=== PATIENT | male | born 1945 | race Caucasian/White ===

== ENCOUNTER 2020-05-21 14:46 | Emergency (ER) | payer MEDICARE, OTHER, SELFPAY ==
--- NOTE | ~2020-05-21 | XR_ITS ---
XR humerus RT DATE: 05/21/2020 16:00 INDICATION: Patient felt a pop in the arm, swelling TECHNIQUE: AP and lateral views COMPARISON: None FINDINGS: There is old healed fracture deformity of the midshaft of the right clavicle. There is evidence of rotator cuff atrophy. There is degenerative spurring at the acromioclavicular xavier int. There is osteophyte is at the right glenohumeral joint. Prominent ossicles are noted adjacent to the elbow joint. Osteoarthritis is noted at the right elbow joint. No recent fracture or dislocation is evident. No periosteal reaction or bone destruction. 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
[2020-05-21 15:06] VITALS: BP 128/63; PULSE 78; RESP 18; TEMP 37.2; O2SAT 98
--- NOTE | 2020-05-21 15:26 | ED.GENADULT ---
HPI - General Adult General Chief complaint: Extremity Problem,Nontraumatic Stated complaint: knot on right arm Time Seen by Provider: 05/21/20 15:43 Source: patient Mode of arrival: ambulatory Limitations: no limitations History of Present Illness HPI narrative: 34-year-old male patient presents to the the medical center with complaints of right upper arm pain. Patient states he was at work today and was pushing a small box into a truck and states he felt a pop down by his elbow that radiated up to the mid upper arm. Patient states now he has noticed some swelling to the bicep area and knots . Patient states there is a little bit of pain to the area. Related Data Home Medications Medication Instructions Recorded Confirmed allopurinol 100 mg PO DAILY 05/21/20 05/21/20 aspirin [Aspir-81] 81 mg PO DAILY 05/21/20 05/21/20 atorvastatin 40 mg PO DAILY 05/21/20 05/21/20 carvedilol 05/21/20 citalopram 20 mg PO DAILY 05/21/20 05/21/20 clopidogrel 75 mg PO DAILY 05/21/20 05/21/20 famotidine 20 mg PO BID 05/21/20 05/21/20 hydrochlorothiazide 12.5 mg PO DAILY 05/21/20 05/21/20 lisinopril 10 mg PO DAILY 05/21/20 05/21/20 metformin 1,000 mg PO BID 05/21/20 05/21/20 Allergies Allergy/AdvReac Type Severity Reaction Status Date / Time No Known Allergies Allergy Verified 05/21/20 15:06 Review of Systems Review of Systems: Narrative: CONSTITUTIONAL: Denies fever, chills, or sweats. EYES: Denies visual changes, redness, or discharge. ENT: Denies rhinorrhea, congestion, sore throat, or otalgia. CARDIOVASCULAR: Denies chest pain, palpitations, or edema. RESPIRATORY: Denies cough or dyspnea. GASTROINTESTINAL: Denies abdominal pain, nausea, vomiting, or diarrhea. GENITOURINARY: Denies dysuria or hematuria. SKIN: Denies rash or itching. MUSCULOSKELETAL: Denies back pain, joint pain, or myalgia. Positive right arm pain NEUROLOGIC: Denies headache, numbness, or weakness. PSYCHIATRIC: Denies anxiety or depression. PMFSH Comments At the time of my signature I agree with nursing past medical history, surgical, social, and family history. There is no relevant family history pertinent to the presenting complaint. Exam Narrative: Exam Narrative: GENERAL: Well-appearing, well-nourished, and in no acute distress. HEAD: Normocephalic, atraumatic. EYES: PERRLA and EOMI. ENT: Nares clear, no rhinorrhea or epistaxis. Mucous membranes moist. NECK: Supple. No lymphadenopathy CHEST: Clear to auscultation. No respiratory distress. HEART: Regular rate and rhythm. No murmur heard. Normal peripheral pulses. ABDOMEN: Soft, nontender, nondistended, normal active bowel sounds. EXTREMITIES: Patient has some swelling in a hardened area right around the right bicep on the anterior side. There is an hardened area that slightly tender. Patient has overall good range of motion but unable to fully extend the elbow on the right side as compared to the left. Patient is able to raise his arm above his head without difficulty. SKIN: Warm, dry, no rash. NEURO: No focal deficits. Alert and oriented x3. Course Reevaluation(s) Reevaluation #1: Reevaluated patient after his x-ray had resulted. Discussed with him that the x-ray shows possibly some rotator cuff atrophy which is concerning for a possible bicep tear. Discussed with him that we can have him follow-up with orthopedic surgeon for further evaluation and treatment. Discussed with him that I did call the orthopedic surgeon and he needs to call his office tomorrow and schedule appointment. Discussed with patient he can take Tylenol and ibuprofen as needed for the pain we will also fit him for a sling to wear for comfort and I am going to take him off work until he sees the orthopedic surgeon. Discussed with him that the orthopedic surgeon can release him back to work either with full duty or restrictions. Patient is aware the plan of care at this time denies any other questions or concerns. Consultations Consultation #1:
== END 2020-05-21 16:44 | disposition home or self-care (01) ==
PROVIDERS: Emergency Provider Nurse Practitioner Family; PCP Internal Medicine
DX: S46.211A Strain of muscle, fascia and tendon of other parts of biceps, right arm, initial encounter (principal); Z79.82 Long term (current) use of aspirin; Z79.84 Long term (current) use of oral hypoglycemic drugs; X50.9XXA Other and unspecified overexertion or strenuous movements or postures, initial encounter
CPT/HCPCS: 73060; 99203; A4565; G0463

== ENCOUNTER 2021-07-17 15:06 | Emergency (ER) | payer MEDICARE, OTHER, SELFPAY ==
--- NOTE | ~2021-07-17 | XR_ITS ---
EXAMINATION: XR foot LT min 3V DATE: 07/17/2021 15:33 INDICATION: Left heel and lateral foot pain. TECHNIQUE: 4 views of left foot were obtained. COMPARISON: None. FINDINGS: Bone alignment is normal. No fracture. There is moderate osteoarthritis of first metatarsop halangeal joint and mild osteoarthritis of some of the interphalangeal joints and midfoot joints. The re are dystrophic calcifications around first metatarsophalangeal joint. There is an enthesophyte at posterior aspect of calcaneal tuberosity. IMPRESSION: 1. Polyarticular osteoarthritis. Reviewed, dictated and finalized at location B.
[2021-07-17 15:16] VITALS: BP 128/64; PULSE 101; RESP 20; TEMP 36.8; O2SAT 96
--- NOTE | 2021-07-17 15:35 | ED.GENADULT ---
HPI - General Adult General Chief complaint: Extremity Injury, Lower Stated complaint: left foot pain Source: patient Mode of arrival: ambulatory Limitations: no limitations History of Present Illness HPI narrative: Patient is a 76-year-old male who presents to the [facility] via POV for evaluation of left heel pain that has been present for 1 week. Additionally, patient reports his pain to be intermittent and sharp in nature. Current pain level is 8 out of 10 on a pain scale. Pain is resolved with sitting and worsens with weightbearing. Related Data Home Medications Medication Instructions Recorded Confirmed allopurinol 100 mg PO DAILY 05/21/20 05/21/20 aspirin [Aspir-81] 81 mg PO DAILY 05/21/20 05/21/20 atorvastatin 40 mg PO DAILY 05/21/20 05/21/20 carvedilol 05/21/20 citalopram 20 mg PO DAILY 05/21/20 05/21/20 clopidogrel 75 mg PO DAILY 05/21/20 05/21/20 famotidine 20 mg PO BID 05/21/20 05/21/20 hydrochlorothiazide 12.5 mg PO DAILY 05/21/20 05/21/20 lisinopril 10 mg PO DAILY 05/21/20 05/21/20 metformin 1,000 mg PO BID 05/21/20 05/21/20 Allergies Allergy/AdvReac Type Severity Reaction Status Date / Time No Known Allergies Allergy Verified 05/21/20 15:06 Review of Systems Review of Systems: Denies fever, chills, sweats, change in appetite, poor p.o. intake, malaise, calf tenderness, skin color changes, rash, warmth, swelling, numbness, tingling, loss of sensation, deformity, decreased range of motion, weakness, difficulty with ambulation/coordination, nausea, vomiting, lymphadenopathy, shortness of breath, chest pain, heart palpitations, and heart murmur. [facility] Past Medical History Medical History (Updated 07/17/21 @ 15:49 by VICKY Salinas, ) Depression Diabetes GERD (gastroesophageal reflux disease) Gout Hyperlipidemia Hypertension Comments I have reviewed and agree with the patient's past medical, surgical, social, and family hx as documented by the RN. There is no relevant family history pertinent to the presenting complaint. Exam Narrative: GENERAL: Well-appearing, well-nourished, and in no acute distress. HEAD: Normocephalic, atraumatic. NECK: Supple. No Lymphadenopathy or nuchal rigidity appreciated. CHEST: Bilateral lung finch are clear to auscultation. No respiratory distress. No evidence of cough or pleuritic cp upon examination. HEART: Tachycardia with a rate of 101. Regular rhythm. No murmur, gallop, or rub heard. EXTREMITIES: Mild pain elicited with palpation noted to lateral aspect of left foot and left calcaneus.. No evidence of injury, decreased ROM, swelling, cyanosis, hematoma, laceration, abrasion, deformity, rash, or puncture. No evidence of pain with active/passive ROM. No evidence of dislocation, ligament laxity, effusion, or pain at rest. Pulses palpable at 2+, strength 5/5, and cap refill < 3 seconds in affected extremity. DTRs normal. Gait normal. SKIN: Warm, dry, no rash. NEURO: No focal deficits. Alert and oriented x3. SPECIAL OBSERVATIONS: Smiling. Laughing. Course Vital Signs Vital signs: Vital Signs Temperature 98.2 F 07/17/21 15:16 Pulse Rate 101 H 07/17/21 15:16 Respiratory Rate 07/17/21 15:16 Blood Pressure 128/64 07/17/21 15:16 Pulse Oximetry 96 07/17/21 15:16 Temperature 98.2 F 07/17/21 15:16 Pulse Rate 101 H 07/17/21 15:16 Respiratory Rate 07/17/21 15:16 Blood Pressure 128/64 07/17/21 15:16 Pulse Oximetry 96 07/17/21 15:16 Medical Decision Making Differential Diagnosis Differential Diagnosis: Sprain, strain, cellulitis, open fracture, closed fracture, gout Medical Records Medical records reviewed: Yes I reviewed the external patient's medical records. Vital Signs Vital Signs: Vital Signs Temperature 98.2 F 07/17/21 15:16 Pulse Rate 101 H 07/17/21 15:16 Respiratory Rate 07/17/21 15:16 Blood Pressure 128/64 07/17/21 15:16 Pulse Oximetry 96 07/17/21 15:16 Temperature 98
== END 2021-07-17 16:04 | disposition home or self-care (01) ==
PROVIDERS: Emergency Provider Nurse Practitioner Family
DX: M19.072 Primary osteoarthritis, left ankle and foot (principal); E11.9 Type 2 diabetes mellitus without complications; K21.9 Gastro-esophageal reflux disease without esophagitis; M10.9 Gout, unspecified; E78.5 Hyperlipidemia, unspecified; I10 Essential (primary) hypertension; F32.9 Major depressive disorder, single episode, unspecified; Z79.82 Long term (current) use of aspirin
CPT/HCPCS: 73630; 99213; G0463

== ENCOUNTER 2021-12-09 10:07 | Emergency (ER) | payer MEDICARE, OTHER, SELFPAY ==
--- NOTE | 2021-12-09 10:10 | ED.URI ---
HPI - URI/Sore Throat General Chief Complaint: Upper Respiratory Infection Stated Complaint: COLD SX Time Seen by Provider: 12/09/21 10:19 Source: patient, family, RN notes reviewed and old records reviewed Mode of arrival: ambulatory Limitations: no limitations History of Present Illness HPI Narrative: 76-year-old male presents to the [facility] with red watery eyes, congestion and cough since Wednesday. Has been taking Coricidin HBP. Has had COVID-vaccine but not a flu vaccine. Denies fevers, chest pain, abdominal pain. No nausea vomiting or diarrhea MD elicited complaint: cough and nasal congestion Related Data Home Medications Medication Instructions Recorded Confirmed allopurinol 100 mg PO DAILY 05/21/20 05/21/20 aspirin [Aspir-81] 81 mg PO DAILY 05/21/20 05/21/20 atorvastatin 40 mg PO DAILY 05/21/20 05/21/20 carvedilol 05/21/20 citalopram 20 mg PO DAILY 05/21/20 05/21/20 clopidogrel 75 mg PO DAILY 05/21/20 05/21/20 famotidine 20 mg PO BID 05/21/20 05/21/20 hydrochlorothiazide 12.5 mg PO DAILY 05/21/20 05/21/20 lisinopril 10 mg PO DAILY 05/21/20 05/21/20 metformin 1,000 mg PO BID 05/21/20 05/21/20 cholecalciferol (vitamin D3) 125 mcg PO DAILY 12/09/21 12/09/21 Allergies Allergy/AdvReac Type Severity Reaction Status Date / Time No Known Allergies Allergy Verified 05/21/20 15:06 Review of Systems Review of Systems: All systems reviewed & are unremarkable except as noted in HPI and below Constitutional: Constitutional: Reports no additional constitutional complaints, Denies chills, Denies fever(s) and Denies headache(s) Eyes: Eyes: Reports as per HPI Comments: Red eyes ENT: Reports as per HPI, Denies vertigo, Denies dizziness, Denies headache(s), Denies nasal congestion and Denies sore throat Cardiovascular: Cardiovascular: Reports no additional cardiovascular complaints, Denies chest pain, Denies syncope, Denies rapid heart rate and Denies dyspnea Respiratory: Respiratory: Reports as per HPI, Reports cough, Denies dyspnea and Denies wheezing Gastrointestinal: Gastrointestinal: Reports no additional gastrointestinal complaints, Denies abdominal pain, Denies diarrhea, Denies nausea and Denies vomiting Musculoskeletal: Musculoskeletal: Reports as per HPI, Reports myalgias and Denies numbness Integumentary/Breasts: Skin/Breast: Reports system reviewed and no additional complaints, except as docu Neurologic: Reports system reviewed and no additional complaints, except as documented, Denies vertigo, Denies dizziness, Denies syncope, Denies headache(s), Denies focal weakness and Denies numbness Psychiatric: Psychiatric: Reports no additional psychiatric complaints Allergic/Immunologic: Allergic/Immunologic: Reports no additional allergic/immunologic complaints and Denies wheezing PMFSH Past Medical History Medical History (Updated 12/09/21 @ 10:47 by Elin Rios) Depression Diabetes GERD (gastroesophageal reflux disease) Gout Hyperlipidemia Hypertension Comments At the time of my signature, I reviewed and agree with the nursing past medical, surgical, social, and family history. There is no relevant family history pertinent to the patient complaint. Exam Const: General: cooperative, no acute distress, well developed, alert and ill appearing acutely (mild) Nutritional Appearance: well nourished Orientation/consciousness: patient oriented x3 Limitations: no limitations HENMT: Head: normal to inspection Ears: external ears normal, TM's normal bilaterally and EAC's normal Eyes: Conjunctivae: conjunctivae normal Pupils: Equal, round and reactive pupils present Other: Red eyes, constantly watering Neck: Neck: normal visual inspection, no lymphadenopathy and no meningeal signs Chest: Chest palpation & inspection: normal inspection of the chest Resp: Effort & Inspection: normal respiratory effort and no use of accessory muscles Auscultation: clear to auscultation bilaterally, no crackles, no rales
[2021-12-09 10:22] VITALS: BP 142/50; PULSE 74; RESP 16; TEMP 37; O2SAT 98
[2021-12-09 10:33] VITALS: BP 142/50; PULSE 74; RESP 16; TEMP 37; O2SAT 98
[2021-12-10 21:18] LABS: SARS-CoV-2 RNA PCR Negative
== END 2021-12-09 10:50 | disposition home or self-care (01) ==
PROVIDERS: Emergency Provider Nurse Practitioner; PCP Internal Medicine
DX: B34.9 Viral infection, unspecified (principal); Z20.822 Contact with and (suspected) exposure to COVID-19; K21.9 Gastro-esophageal reflux disease without esophagitis; M10.9 Gout, unspecified; E78.5 Hyperlipidemia, unspecified; I10 Essential (primary) hypertension; F32.9 Major depressive disorder, single episode, unspecified
CPT/HCPCS: 87804; 99213; C9803; G0463; U0003; U0005

== ENCOUNTER 2023-04-03 12:37 | Emergency (ER) | payer MEDICARE, SELFPAY ==
--- NOTE | ~2023-04-03 | XR_ITS ---
EXAMINATION: XR abdomen/kub 1V DATE: 04/03/2023 14:01 INDICATION: Right flank pain. Microhematuria. TECHNIQUE: A supine view of the abdomen on 2 radiographs was obtained. COMPARISON: None. FINDINGS: There are no dilated loops of bowel. There is a total right hip arthroplasty. There is a 4 mm calcification overlying right kidney. IMPRESSION: 1. 4 mm calcification overlying right kidney that may be a stone. Reviewed, dictated and finalized at location A.
[2023-04-03 12:58] VITALS: BP 140/62; PULSE 73; RESP 16; TEMP 37.1; O2SAT 98
--- NOTE | 2023-04-03 13:37 | ED.NAVMDI ---
HPI - Nausea/Vomiting/Diarrhea General Chief complaint: Nausea/Vomiting/Diarrhea Stated complaint: Pain in side, n/v Time Seen by Provider: 04/03/23 13:39 Source: patient and RN notes reviewed Mode of arrival: ambulatory Limitations: no limitations History of Present Illness HPI Narrative: 77-year-old male presents with concern for right flank pain. He reports pain for about 3 days, reports he started vomiting yesterday. Reports he has been unable to keep anything down. He reports pain is there at rest, worsens when he twists. He denies any abdominal pain, fever, chills, sweats. He denies diarrhea. Denies dysuria, frequency, urgency, hematuria. Reports normal bowel movements MD elicited complaint: nausea, vomiting and diarrhea Related Data Home Medications Medication Instructions Recorded Confirmed allopurinol 100 mg tablet 100 mg PO DAILY 05/21/20 04/03/23 aspirin 81 mg tablet,delayed 81 mg PO DAILY 05/21/20 04/03/23 release (Aspir-) atorvastatin 40 mg tablet 40 mg PO DAILY 05/21/20 04/03/23 carvedilol 6.25 mg tablet 6.25 mg PO DAILY 05/21/20 04/03/23 citalopram 20 mg tablet 20 mg PO DAILY 05/21/20 04/03/23 clopidogrel 75 mg tablet 75 mg PO DAILY 05/21/20 04/03/23 famotidine 20 mg tablet 20 mg PO BID 05/21/20 04/03/23 hydrochlorothiazide 12.5 mg capsule 12.5 mg PO DAILY 05/21/20 04/03/23 lisinopril 10 mg tablet 10 mg PO DAILY 05/21/20 04/03/23 metformin 1,000 mg tablet 1,000 mg PO BID 05/21/20 04/03/23 cholecalciferol (vitamin D3) 125 125 mcg PO DAILY 12/09/21 04/03/23 mcg (5,000 unit) tablet dapagliflozin 10 mg tablet 10 mg PO DAILY 04/03/23 04/03/23 (Farxiga) pioglitazone 15 mg tablet 15 mg PO DAILY 04/03/23 04/03/23 Allergies Allergy/AdvReac Type Severity Reaction Status Date / Time No Known Allergies Allergy Verified 04/03/23 13:25 Review of Systems Review of Systems: CONSTITUTIONAL: Denies malaise, chills, sweats, or fever. ENT: Denies rhinorrhea, congestion, sinus pain, otalgia or sore throat. CARDIOVASCULAR: Denies chest pain, palpitations, or edema. RESPIRATORY: Denies cough or dyspnea. GASTROINTESTINAL: Denies abdominal pain, diarrhea, bloody, or mucous stools. Reports nausea and vomiting GENITOURINARY: Denies dysuria or hematuria. Reports right flank pain MUSCULOSKELETAL: Denies myalgia. NEUROLOGIC: Denies headache. All systems reviewed & are unremarkable except as noted in HPI and below PMFSH Past Medical History Medical History (Updated 04/03/23 @ 14:13 by Elin aVsquez NP) Depression Diabetes GERD (gastroesophageal reflux disease) Gout Hyperlipidemia Hypertension Comments At time of signature, agree with nursing past medical, surgical, social and family history. There is no relevant family history pertinent to the presenting complaint Exam Narrative: GENERAL: Well-appearing, well-nourished, and in no acute distress. HEAD: Normocephalic, atraumatic. EYES: PERRLA, conjunctivae clear, and EOMI. ENT: Nares clear, turbinates pink, no rhinorrhea or epistaxis. Mucous membranes moist. Oropharynx without edema, erythema, or lesions. Tonsils not enlarged and without exudate. NECK: Supple. No lymphadenopathy CHEST: Speaks in full sentences. No respiratory distress. HEART: Regular rate and rhythm. ABDOMEN: Soft, obese, nondistended, nontender. No guarding, rebound tenderness, or rigidity. No pulsatile masses. Bowel sounds present in all four quadrants. No Supra public tenderness or distension. SKIN: Warm, dry, no rash. NEURO: Alert and oriented x3. PSYCH: Normal mood and affect Course Course Emergency Course: Patient is aware of diagnosis, understands and agrees to treatment plan. Anticipatory guidance given. Patient agrees to follow-up as directed and is aware of reasons to seek care at the emergency department. Portions of this record may have been created with voice recognition software Level of Care: Express Care Visit Vital Signs Vital signs: Vital Signs
== END 2023-04-03 14:32 | disposition home or self-care (01) ==
PROVIDERS: Emergency Provider Nurse Practitioner
DX: N20.0 Calculus of kidney (principal); E11.9 Type 2 diabetes mellitus without complications; E78.5 Hyperlipidemia, unspecified; I10 Essential (primary) hypertension; Z79.82 Long term (current) use of aspirin
CPT/HCPCS: 74018; 81003; 99213; G0463

== ENCOUNTER 2023-09-17 11:40 | Emergency (ER) | payer MEDICARE, SELFPAY ==
[2023-09-17] VITALS (14 sets, daily range): BP systolic 144–182; BP diastolic 65–89; PULSE 60–77; RESP 12–20; TEMP 36.1; O2SAT 95–100
--- NOTE | ~2023-09-17 | CT_ITS ---
EXAMINATION: CT abdomen pelvis wo con DATE: 09/17/2023 16:02 INDICATION: Right flank pain and hematuria TECHNIQUE: Computed tomography (CT) of the abdomen and pelvis was performed without intravenous contr ast. Automated exposure control and iterative reconstruction technique were employed. The dose-length product was 1121.54 mGy-cm. COMPARISON: None FINDINGS: Mild clinical bronchiectasis at the bilateral lower lobes. Heart size is normal. Atherosclerotic lissa nary artery calcification. Lipomatous hypertrophy of the atrial septum. No pericardial or pleural eff usion. Liver, gallbladder, spleen and right adrenal gland are normal. Small amount of dystrophic calc ific lesion along the left adrenal gland likely sequela of chronic hemorrhage or infection. Moderate fatty atrophy of the pancreas. Kidneys and ureters are normal with no urolithiasis, hydroureteronephr osis or perinephric/ureteral stranding. Bowels including the appendix are normal. Bladder is normal. Prostatomegaly measuring 4.1 x 3.0 cm. Small bilateral fat-containing inguinal hernias. No free intra peritoneal gas or fluid. No pathologically enlarged abdominal or pelvic lymphadenopathy. Mild lumbar levocurvature with moderate to severe spondylosis. Right total hip arthroplasty. IMPRESSION: 1. No urolithiasis or acute intra-abdominal/pelvic process. 2. Small bilateral fat-containing inguinal hernias. Reviewed, dictated and finalized at location A.
[2023-09-17 15:12] LABS: Basophils Percent Auto 0.4 % (0.2-1.2); Eosinophils Percent Auto 0.4 % (0-4.4); Hematocrit 48.1 % (42.0-52.0); Immature Granulocyte Absolute 0.04 K/mm3 (0.00-0.031); Immature Granulocyte Percent A 0.5 % (0-0.5); Lymphocytes Absolute Auto 1.31 K/mm3 (0.9-3.2); Lymphocytes Percent Auto 16.1 % (18.3-44.2); Mean Corpuscular HGB Conc 33.3 g/dl (32-36); Mean Corpuscular Hemoglobin 29.8 pg (26-34); Mean Corpuscular Volume 89.6 fl (80-100); Mean Platelet Volume 9.8 fl (7.4-10.4); Monocytes Percent Auto 12.7 % (2.6-8.5); Neutrophils Absolute Auto 5.7 K/mm3 (1.3-6.7); Neutrophils Percent Auto 69.9 % (45.5-73.1); Platelet Count Result 239 k/mm3 (150-375); Red Blood Count 5.37 M/mm3 (4.6-6.20); White Blood Count 8.2 K/mm3 (4.5-10.0)
[2023-09-17 15:18] LABS: Appearance Urine Clear (Clear); Bacteria Urine None Seen /hpf; Bilirubin Urine Negative (Negative); Blood Urine 2+ (Negative); Color Urine Yellow (Yellow); Glucose Urine UA 3+ mg/dL (Negative); Ketones Urine Trace mg/dL (Negative); Leukocyte Esterase Ur Negative LEU/UL (Negative); Nitrate Urine Negative (Negative); Non Pathogenic Casts 0-2; Protein Urine Negative (Negative); Specific Grav Ur 1.032 (1.001-1.035); Squamous Epithelial Cell Urine None seen /hpf (Few); WBC Urine 0-5 /hpf; pH Urine 5.5 (5.0-9.0)
[2023-09-17 15:19] LABS: Add Urine Microscopic? YES
[2023-09-17 15:24] LABS: Lactic Acid Reflex 3.2 mmol/L (0.7-2.0)
[2023-09-17 15:31] LABS: Alanine Aminotransferase 18 U/L (6-50); Albumin Level 4.6 g/dL (3.5-5.1); Alkaline Phosphatase 65 U/L (38-126); Anion Gap 14 mmol/L (8-16); Aspartate Amino Transferase 26 U/L (17-59); Bilirubin,Total 0.8 mg/dL (0.2-1.3); Blood Urea Nitrogen 21 mg/dL (9-20); Calcium 9.1 mg/dL (8.4-10.2); Carbon Dioxide 21 mmol/L (22-30); Chloride 99 mmol/L (98-107); Estimated CRCL calculation 65 ml/min; Estimated Glomerular Filt Rate > 60; Glucose 108 mg/dL (65-110); Lipase 114 U/L (23-300); Potassium 3.6 mmol/L (3.4-5.0); Sodium 134 mmol/L (137-145)
[2023-09-17 15:32] LABS: Partial Thromboplastin Time 27.3 SECONDS (22.3-36.8); Prothrombin Time 13.3 Seconds (11.1-14.7)
--- NOTE | 2023-09-17 15:45 | ED.ABDPAIN ---
HPI - Abdominal Pain General Chief Complaint: Abdominal Pain Stated Complaint: right flank pain x6 months Time Seen by Provider: 09/17/23 14:32 History of Present Illness HPI narrative: 78-year-old male present to the emergency department for evaluation of right flank pain. Patient states he has had intermittent right flank pain over the course of the last 6 months. Patient does have prior history of hematuria, previous imaging showing kidney stone but patient has never had follow-up with urology. Patient does have follow-up scheduled with urology in [place] next week. Related Data Home Medications Medication Instructions Recorded Confirmed allopurinol 100 mg tablet 100 mg PO DAILY 05/21/20 04/03/23 aspirin 81 mg tablet,delayed 81 mg PO DAILY 05/21/20 04/03/23 release (Aspir-) atorvastatin 40 mg tablet 40 mg PO DAILY 05/21/20 04/03/23 carvedilol 6.25 mg tablet 6.25 mg PO DAILY 05/21/20 04/03/23 citalopram 20 mg tablet 20 mg PO DAILY 05/21/20 04/03/23 clopidogrel 75 mg tablet 75 mg PO DAILY 05/21/20 04/03/23 famotidine 20 mg tablet 20 mg PO BID 05/21/20 04/03/23 hydrochlorothiazide 12.5 mg capsule 12.5 mg PO DAILY 05/21/20 04/03/23 lisinopril 10 mg tablet 10 mg PO DAILY 05/21/20 04/03/23 metformin 1,000 mg tablet 1,000 mg PO BID 05/21/20 04/03/23 cholecalciferol (vitamin D3) 125 125 mcg PO DAILY 12/09/21 04/03/23 mcg (5,000 unit) tablet dapagliflozin propanediol 10 mg 10 mg PO DAILY 04/03/23 04/03/23 tablet (Farxiga) pioglitazone 15 mg tablet 15 mg PO DAILY 04/03/23 04/03/23 Allergies Allergy/AdvReac Type Severity Reaction Status Date / Time No Known Allergies Allergy Verified 09/17/23 11:41 Review of Systems Review of Systems: All systems reviewed & are unremarkable except as noted in HPI and below PMFSH Past Medical History Medical History (Updated 09/17/23 @ 17:53 by Henrik Matos MD) Depression Diabetes GERD (gastroesophageal reflux disease) Gout Hyperlipidemia Hypertension Exam Narrative: APPEARANCE: Well appearing, no pain, no distress, well-nourished. HEAD: normocephalic, atraumatic. EYES: PERRLA/EOMI, conjunctivae clear. NOSE: Normal no drainage NECK: Supple. No adenopathy, no masses. RESPIRATORY: Airway patent, respirations nonlabored. Clear to auscultation bilaterally, no rales, rhonchi, wheezing. CARDIOVASCULAR: Regular rate and rhythm without murmurs rubs or gallops. ABDOMINAL: Left CVA tenderness to palpation, no right CVA tenderness to palpation MUSCULOSKELETAL: Moves all extremities. Strength/ROM intact, No edema, No calf tenderness. NEURO: Alert. Cranial nerves II through XII intact. Grossly intact SKIN: Warm, dry. Normal Color Course Course Emergency Course: 78-year-old male present to the emergency department for ration of flank pain. Patient is afebrile with no leukocytosis and a stable hemoglobin. Patient's CMP shows no significant abnormalities. Patient's lactic acid is elevated 3.2. Patient was treated with IV fluids. Patient's UA does show hematuria without underlying infection. CT abdomen pelvis without contrast was ordered to further evaluate the hematuria and to evaluate for a kidney stone. Patient was treated with IV fluids. Patient's repeat lactic acid was improved. CT scan showed no evidence of ureteral calculi. Patient and family are updated the results of the work-up. Patient will be provided medication for pain control for home although he is currently pain-free in the ED. Patient does have follow-up scheduled with urology. All question concerns were addressed and they are comfortable with the plan for discharge and close follow-up. Vital Signs Vital signs: Vital Signs Temperature 97.0 F L 09/17/23 11:50 Pulse Rate 75 09/17/23 11:50 Respiratory Rate 20 09/17/23 11:50 Blood Pressure 161/72 H 09/17/23 11:50 Pulse Oximetry 98 09/17/23 11:50 Temperature 97.0 F L 09/17/23 11:50 Pulse Rate 60 09/17/23 17:45 Respiratory Rate
[2023-09-17] MEDS: SODIUM CHLORIDE 0.9% IV 1,000 ML 999 ML IV CONT ×2 (16:08→16:55)
[2023-09-17 17:48] LABS: Lactic Acid Reflex 1.2 mmol/L (0.7-2.0)
[2023-09-17 18:08] LABS: Reflex Lactic Acid Yes or No Add Lactic
== END 2023-09-17 18:10 | disposition home or self-care (01) ==
PROVIDERS: Emergency Provider Emergency Medicine
DX: R10.31 Right lower quadrant pain (principal); R31.9 Hematuria, unspecified; E11.9 Type 2 diabetes mellitus without complications; I10 Essential (primary) hypertension; E78.5 Hyperlipidemia, unspecified; K21.9 Gastro-esophageal reflux disease without esophagitis; M10.9 Gout, unspecified; F32.A Depression, unspecified; Z79.82 Long term (current) use of aspirin; Z79.84 Long term (current) use of oral hypoglycemic drugs; Z79.891 Long term (current) use of opiate analgesic
CPT/HCPCS: 36415; 74176; 80053; 81001; 83605; 83690; 85025; 85610; 85730; 96360; 96361; 99284; J7030

== ENCOUNTER 2024-07-04 14:39 | Emergency (ER) | payer MEDICARE, SELFPAY ==
--- NOTE | ~2024-07-04 | CT_ITS ---
EXAMINATION: CT brain wo con DATE: 07/04/2024 16:03 INDICATION: Head injury . TECHNIQUE: Computed tomography (CT) of the head was performed without intravenous contrast. The mA wa s adjusted according to patient size. Iterative reconstruction technique was employed. The dose-lengt h product was 681.00 mGy-cm. COMPARISON: None. FINDINGS: No acute intracranial hemorrhage or extra-axial fluid collection. No hydrocephalus, mass, or herniation. No acute ischemic infarct. Unremarkable dural venous sinus attenuation. No acute osseous abnormality. Left frontal soft tissue hematoma. Trace bilateral mastoid fluid, the remaining aerated spaces are clear. Moderate atrophy and mild chronic white matter change. Atherosclerotic intracranial calcification. Bi lateral lens replacements. IMPRESSION: No acute intracranial process. Reviewed, dictated and finalized at location K.
[2024-07-04 14:52] VITALS: BP 160/69; PULSE 88; RESP 17; TEMP 36.6; O2SAT 98
--- NOTE | 2024-07-04 16:19 | ED.HEATRA ---
HPI - Head Injury General Chief complaint: Head Injury Stated complaint: head injury Time Seen by Provider: 07/04/24 15:16 Source: patient Mode of arrival: ambulatory Limitations: no limitations History of Present Illness HPI Narrative: This is a 79-year-old male, with history coronary artery disease on Plavix, who presents emergency department after suffering head injury. The patient states he was on a mobility scooter in a local store, when while trying to cut a corner accidentally struck his head on a metal shelf. He denies loss of consciousness or fall from scooter. He denies pain or injury elsewhere. He complains of 3/10 throbbing headache. He has no other complaints at this time. Related Data Home Medications Medication Instructions Recorded Confirmed allopurinol 100 mg tablet 100 mg PO DAILY 05/21/20 04/03/23 aspirin 81 mg tablet,delayed 81 mg PO DAILY 05/21/20 04/03/23 release (Aspir-) atorvastatin 40 mg tablet 40 mg PO DAILY 05/21/20 04/03/23 carvedilol 6.25 mg tablet 6.25 mg PO DAILY 05/21/20 04/03/23 citalopram 20 mg tablet 20 mg PO DAILY 05/21/20 04/03/23 clopidogrel 75 mg tablet 75 mg PO DAILY 05/21/20 04/03/23 famotidine 20 mg tablet 20 mg PO BID 05/21/20 04/03/23 hydrochlorothiazide 12.5 mg capsule 12.5 mg PO DAILY 05/21/20 04/03/23 lisinopril 10 mg tablet 10 mg PO DAILY 05/21/20 04/03/23 metformin 1,000 mg tablet 1,000 mg PO BID 05/21/20 04/03/23 cholecalciferol (vitamin D3) 125 125 mcg PO DAILY 12/09/21 04/03/23 mcg (5,000 unit) tablet dapagliflozin propanediol 10 mg 10 mg PO DAILY 04/03/23 04/03/23 tablet (Farxiga) pioglitazone 15 mg tablet 15 mg PO DAILY 04/03/23 04/03/23 Allergies Allergy/AdvReac Type Severity Reaction Status Date / Time No Known Allergies Allergy Verified 07/04/24 14:53 Review of Systems Review of Systems: All systems reviewed & are unremarkable except as noted in HPI and below PMFSH Past Medical History Medical History Depression Diabetes GERD (gastroesophageal reflux disease) Gout Hyperlipidemia Hypertension Surgical History Surgical History No significant past surgical history Social History Social History Smoking status: Never smoker Alcohol intake: never Substance use: never Exam Narrative: GENERAL: Well-developed, well-nourished, and in no acute distress. HEAD: Normocephalic, a hematoma with abrasions noted over the left eyebrow measuring approximately 3 cm diameter. EYES: PERRLA and EOMI. ENT: Nares clear, no rhinorrhea or epistaxis. Mucous membranes moist. Oropharynx without tonsillar hypertrophy exudate or other lesions. No facial tenderness with palpation NECK: Supple. No midline spine tenderness to palpation, step-off or crepitus. Normal range of motion of the neck. CHEST: Clear to auscultation. No respiratory distress. No wheezes rales or rhonchi HEART: Regular rate and rhythm. No murmur heard. Normal peripheral pulses. ABDOMEN: Soft, nontender, nondistended, normal active bowel sounds. BACK: No midline spine tenderness to palpation, step-off or crepitus. EXTREMITIES: Normal range of motion. No edema. SKIN: Warm, dry, no rash. NEURO: Alert and oriented x3. No focal deficit. Moving all 4 limbs spontaneously PSYCH: Normal mood and affect. Course Course Emergency Course: 16:18 - CT of the head concerning for skull fracture or intracranial hemorrhage. Exam it was not concerning for cervical spine injury, considering the low speed of the injury, I do not suspect fracture or need for imaging at this time. I suspect concussion. Will discharge with recommendation for primary care follow-up. I discussed the findings and recommendations with the patient and his spouse. Discussed return and emergency precautions including signs/symptoms of intracranial hemorrhage and stroke. T
[2024-07-04 16:34] VITALS: BP 135/61; PULSE 82; RESP 16; O2SAT 98
== END 2024-07-04 16:38 | disposition home or self-care (01) ==
PROVIDERS: Emergency Provider Preventive Medicine Aerospace Medicine
DX: S06.0X0A Concussion without loss of consciousness, initial encounter (principal); S00.03XA Contusion of scalp, initial encounter; I25.10 Atherosclerotic heart disease of native coronary artery without angina pectoris; E11.9 Type 2 diabetes mellitus without complications; E78.5 Hyperlipidemia, unspecified; I10 Essential (primary) hypertension; Z79.01 Long term (current) use of anticoagulants; W22.09XA Striking against other stationary object, initial encounter
CPT/HCPCS: 70450; 99284

== ENCOUNTER 2025-01-24 14:56 | Emergency (ER) | payer MEDICARE, SELFPAY ==
--- NOTE | 2025-01-24 15:06 | ED.WOUNDLAC ---
HPI - Wound/Laceration General Chief Complaint: Wound/Laceration Stated Complaint: cut top of head Time Seen by Provider: 01/24/25 15:08 Source: patient Mode of arrival: ambulatory Limitations: no limitations History of Present Illness HPI narrative: is a 79-year-old male patient presenting to the clinic today with complaints of a laceration to the top of his head. He reports a voided board fell down this morning and hit him in the head. He denies any loss of consciousness. He does take a baby aspirin daily. This occurred around 11:00 a.m. this morning. Does have a very mild headache but denies any visual changes, neck pain, or dizziness. Tetanus was updated last year Related Data Home Medications ?Medication ?Instructions ?Recorded ?Confirmed ?Last Taken ?Type allopurinol 100 mg tablet 100 mg PO DAILY 05/21/20 01/24/25 Unknown History aspirin 81 mg tablet,delayed 81 mg PO DAILY 05/21/20 01/24/25 Unknown History release (Aspir-) atorvastatin 40 mg tablet 40 mg PO DAILY 05/21/20 01/24/25 Unknown History carvedilol 6.25 mg tablet 6.25 mg PO DAILY 05/21/20 01/24/25 Unknown History citalopram 20 mg tablet 20 mg PO DAILY 05/21/20 01/24/25 Unknown History clopidogrel 75 mg tablet 75 mg PO DAILY 05/21/20 01/24/25 Unknown History famotidine 20 mg tablet 20 mg PO BID 05/21/20 01/24/25 Unknown History hydrochlorothiazide 12.5 mg capsule 12.5 mg PO DAILY 05/21/20 01/24/25 Unknown History lisinopril 10 mg tablet 10 mg PO DAILY 05/21/20 01/24/25 Unknown History metformin 1,000 mg tablet 1,000 mg PO BID 05/21/20 01/24/25 Unknown History cholecalciferol (vitamin D3) 125 125 mcg PO DAILY 12/09/21 01/24/25 Unknown History mcg (5,000 unit) tablet dapagliflozin propanediol 10 mg 10 mg PO DAILY 04/03/23 01/24/25 Unknown History tablet (Farxiga) pioglitazone 15 mg tablet 15 mg PO DAILY 04/03/23 01/24/25 Unknown History pantoprazole 20 mg tablet,delayed 20 mg PO DAILY 01/24/25 01/24/25 Unknown History release Allergies Allergy/AdvReac Type Severity Reaction Status Date / Time No Known Allergies Allergy Verified 01/24/25 15:00 Review of Systems Review of Systems: Pertinent positives per HPI. Patient denies any fever, chills, rash, headache, visual changes, dizziness, cough, runny nose, sore throat, shortness of breath, chest pain, palpitations, nausea, vomiting, diarrhea, constipation, abdominal pain, or any urinary issues. PMFSH Past Medical History Medical History Depression Hypertension GERD (gastroesophageal reflux disease) Diabetes Hyperlipidemia Gout Surgical History Surgical History No significant past surgical history Social History Social History Smoking status: Never smoker Alcohol intake: never Substance use: never Comments At the time of my signature, I reviewed and agree with the nursing past medical, surgical, social, and family history. There is no relevant family history pertinent to the patient complaint. Exam Narrative: General: Well-developed, well nourished, in no apparent distress Head: Normocephalic, atraumatic, see skin exam Eyes: Pupils equally round and reactive to light bilaterally, EOM intact, sclera and conjunctive clear, no discharge, lids normal Ears: TMs intact and clear, ear canals clear, no drainage, grossly hearing normal. Nose: Nares patent, no discharge, no inflammation, no sinus tenderness. Mouth: Oropharynx without lesions or masses, good dentition, MMM. Tongue midline, even rise and fall of uvula Neck: Supple, trachea midline, no enlargement of anterior or posterior cervical nodes, no thyroid masses or goiter palpable. Cardio: Regular rate and rhythm, s1 and s2 normal, no murmur appreciated. Resp: Clear to auscultation bilaterally anteriorly and posteriorly, no rhonchi, rales, wheezing or rubs Musculoskeletal: No deformity, non-tender to palpation, grossly normal range of motion, muscle strength strong and equal, peripheral pulse strong, no edema, no cyanosis, normal gait and station Neuro: Alert and oriented x4 with normal speech, no focal deficits, cranial nerves I through XII intact, muscle strength 5 out of 5, sensation intact bilaterally, negative Romberg test Integumentary: [place], warm, and dry, 5 cm scalp laceration to the right side of the scalp, no bleeding at this time Course Course Emergency Course: Portions of this record may have been created with voice recognition software. Level of Care: Express Care Visit Vital Signs Vital signs: Vital signs reviewed Procedures Laceration Laceration 1: Date: 01/24/25 Site: scalp Side (If applicable): right Size (cm): 5 Description: linear and clean Depth: simple, single layer Pre-repair: wound explored and irrigated ====== Skin Level ====== Skin layer closed with: cooper (6 ) ====== Subcutaneous Layer ====== ====== Muscle Layer ====== ====== Tendon Layer ====== Dressing: Verbal consent obtained for laceration repair. Risk and benefits explained and patient voiced understanding. Area was cleansed with antiseptic wound wash. Area was prepped and draped using sterile technique. A stapler was used to place 6 cooper bringing the wound edge together-well approximated. Patient tolerated procedure well. Triple antibiotic ointment was applied MDM - Wound/Laceration MDM Narrative Medical decision making narrative: At the time of visit patient is resting comfortably on the exam table. Patient appears to be nontoxic. Procedures: Laceration repair procedure was performed in the clinic. Six cooper place to close wound bringing the wound edges together well-approximated Plan: Scalp laceration was repaired placing 6 cooper. Patient tolerated well. Red flag symptoms of a closed head injury was reviewed with the patient he voiced understanding. Supportive measures were discussed with the patient and they voiced understanding discharge instructions and agrees to treatment plan. Return precautions reviewed Differential Diagnosis Differential diagnosis: Likely laceration, abscess, abrasion and avulsion of skin Discharge Plan Discharge Clinical Impression: Laceration of scalp Qualifiers: Encounter type: initial encounter Qualified Code(s): S01.01XA - Laceration without foreign body of scalp, initial encounter Patient Disposition: Home, Self-Care Condition: Stable Instructions: Antibiotic Form, Head Laceration (ED) Additional Instructions: [address] for wound closure If you develop worsening of headache, visual changes, confusion, weakness, lethargy, slurred speech, nausea, or vomiting recommend going to the emergency room immediately for evaluation. Keep wound clean and dry Head laceration- cooper out in 5 days. Watch for signs and symptoms of infection- redness, streaking, swelling, purulent discharge, or increase in pain. Follow up with your PCP for suture removal or return to the Express care. Patient Language: Gabonese Prescriptions: No Action atorvastatin 40 mg Tablet 40 mg PO DAILY carvedilol 6.25 mg Tablet 6.25 mg PO DAILY clopidogrel 75 mg Tablet 75 mg PO DAILY allopurinol 100 mg Tablet 100 mg PO DAILY aspirin [Aspir-81] 81 mg Tablet,Delayed Release (Dr/Ec) 81 mg PO DAILY citalopram 20 mg Tablet 20 mg PO DAILY famotidine 20 mg Tablet 20 mg PO BID metformin 1,000 mg Tablet 1,000 mg PO BID lisinopril 10 mg Tablet 10 mg PO DAILY hydrochlorothiazide 12.5 mg Capsule 12.5 mg PO DAILY pantoprazole 20 mg tablet,delayed release (DR/EC) 20 mg PO DAILY cholecalciferol (vitamin D3) 125 mcg (5,000 unit) Tablet 125 mcg PO DAILY pioglitazone 15 mg tablet 15 mg PO DAILY dapagliflozin propanediol [Farxiga] 10 mg tablet 10 mg PO DAILY Follow-up/Referrals: PHYSICIAN NOT ON STAFF,NONSTAFF [Primary Care Provider] - Time of Disposition: 15:21 Quality NIHSS Nursing Documentation ED NIHSS nursing documentation: reviewed/agree
[2025-01-24 15:09] VITALS: BP 142/62; PULSE 79; RESP 16; TEMP 36.9; O2SAT 98
== END 2025-01-24 15:26 | disposition home or self-care (01) ==
PROVIDERS: Emergency Provider Nurse Practitioner Family
DX: S01.01XA Laceration without foreign body of scalp, initial encounter (principal); W20.8XXA Other cause of strike by thrown, projected or falling object, initial encounter; I10 Essential (primary) hypertension; E11.9 Type 2 diabetes mellitus without complications; Z79.84 Long term (current) use of oral hypoglycemic drugs; E78.5 Hyperlipidemia, unspecified; M10.9 Gout, unspecified; K21.9 Gastro-esophageal reflux disease without esophagitis; F32.A Depression, unspecified; Z79.82 Long term (current) use of aspirin
CPT/HCPCS: 12002; 99212; G0463

== ENCOUNTER 2025-01-29 09:29 | Emergency (ER) | payer MEDICARE, SELFPAY ==
--- NOTE | 2025-01-29 09:31 | ED.WOUNDLAC ---
HPI - Wound/Laceration General Chief Complaint: Wound/Laceration Stated Complaint: staple removal Time Seen by Provider: 01/29/25 10:05 Source: patient, RN notes reviewed and old records reviewed Mode of arrival: ambulatory Limitations: no limitations History of Present Illness HPI narrative: 79-year-old male presents to the [facility] requesting staple removal. Patient seen send five days ago. Scabbed was noted to the wound. Has a possible not completely healed in the center. Encourage patient to follow-up at the 10-14 day rojelio. Patient states that the back over the weekend to have the cooper removed Related Data Home Medications ?Medication ?Instructions ?Recorded ?Confirmed ?Last Taken ?Type allopurinol 100 mg tablet 100 mg PO DAILY 05/21/20 01/24/25 Unknown History aspirin 81 mg tablet,delayed 81 mg PO DAILY 05/21/20 01/24/25 Unknown History release (Aspir-) atorvastatin 40 mg tablet 40 mg PO DAILY 05/21/20 01/24/25 Unknown History carvedilol 6.25 mg tablet 6.25 mg PO DAILY 05/21/20 01/24/25 Unknown History citalopram 20 mg tablet 20 mg PO DAILY 05/21/20 01/24/25 Unknown History clopidogrel 75 mg tablet 75 mg PO DAILY 05/21/20 01/24/25 Unknown History famotidine 20 mg tablet 20 mg PO BID 05/21/20 01/24/25 Unknown History hydrochlorothiazide 12.5 mg capsule 12.5 mg PO DAILY 05/21/20 01/24/25 Unknown History lisinopril 10 mg tablet 10 mg PO DAILY 05/21/20 01/24/25 Unknown History metformin 1,000 mg tablet 1,000 mg PO BID 05/21/20 01/24/25 Unknown History cholecalciferol (vitamin D3) 125 125 mcg PO DAILY 12/09/21 01/24/25 Unknown History mcg (5,000 unit) tablet dapagliflozin propanediol 10 mg 10 mg PO DAILY 04/03/23 01/24/25 Unknown History tablet (Farxiga) pioglitazone 15 mg tablet 15 mg PO DAILY 04/03/23 01/24/25 Unknown History pantoprazole 20 mg tablet,delayed 20 mg PO DAILY 01/24/25 01/24/25 Unknown History release Allergies Allergy/AdvReac Type Severity Reaction Status Date / Time No Known Allergies Allergy Verified 01/29/25 09:53 Review of Systems Review of Systems: All systems reviewed & are unremarkable except as noted in HPI and below Constitutional: Constitutional: Reports no additional constitutional complaints ENT: Reports system reviewed and no additional complaints, except as documented Cardiovascular: Cardiovascular: Reports no additional cardiovascular complaints, Denies chest pain and Denies dyspnea Respiratory: Respiratory: Reports no additional respiratory complaints, Denies chest congestion, Denies cough and Denies dyspnea Musculoskeletal: Musculoskeletal: Reports no additional musculoskeletal complaints Integumentary/Breasts: Skin/Breast: Reports as per HPI [facility] Past Medical History Medical History Depression Hypertension GERD (gastroesophageal reflux disease) Diabetes Hyperlipidemia Gout Surgical History Surgical History No significant past surgical history Social History Social History Smoking status: Never smoker Alcohol intake: never Substance use: never Comments At the time of my signature, I reviewed and agree with the nursing past medical, surgical, social, and family history. There is no relevant family history pertinent to the patient complaint. Exam Const: General: cooperative, healthy appearing, comfortable, no acute distress, well developed, alert and well nourished Nutritional Appearance: well nourished Orientation/consciousness: patient oriented x3 Limitations: no limitations HENMT: Head: normal to inspection Eyes: General: appearance normal, both eyes and all related structures Alignment and Position: alignment normal Neck: Neck: normal visual inspection, full ROM, no lymphadenopathy and no meningeal signs Chest: Chest palpation & inspection: normal inspection of the chest Resp: Effort & Inspection: normal respiratory effort and able to speak in complete sentences Cardio: Rate: regular rate Skin: General skin exam: normal color and no rashes or lesions noted Other: Has 7 cooper in top of head. Cleaned area with wound cleanser, removed a couple of the dried scabs, concern for center not being completely healed. Encourage patient to keep in for couple of days longer. Neuro: General: patient oriented x3, gait normal, moves all extremities and no meningeal signs Cognition (Neuro): normal cognition Speech: normal speech Gait exam (Neuro): Normal gait present Extrem: General: normal to inspection, full ROM, capillary refill normal and normal gait Psych: Appearance: grossly normal and well kempt Mental Status: mental status grossly normal Speech and movement: Normal speech and movement present and Clear speech present Affect: normal affect Attitude: cooperative Course Course Level of Care: Express Care Visit Vital Signs Vital signs: Vital Signs Temperature 97.9 F 01/29/25 09:40 Pulse Rate 88 01/29/25 09:40 Respiratory Rate 16 01/29/25 09:40 Blood Pressure 156/69 H 01/29/25 09:40 Pulse Oximetry 98 01/29/25 09:40 Oxygen Delivery Room Air 01/29/25 09:40 Temperature 97.9 F 01/29/25 09:40 Pulse Rate 88 01/29/25 09:40 Respiratory Rate 16 01/29/25 09:40 Blood Pressure 156/69 H 01/29/25 09:40 Pulse Oximetry 98 01/29/25 09:40 Oxygen Delivery Room Air 01/29/25 09:40 Reviewed MDM - Wound/Laceration MDM Narrative Medical decision making narrative: Patient sitting in exam room. Nontoxic, vitals are stable except blood pressure mildly elevated. Patient presents to have cooper removed the orally placed 5 days ago. Wound is approximated however concern for not completely heal. Encouraged patient to come back over the weekend to have cooper removed. Patient was in agreement. Discharge instructions reviewed with patient, as well as provided in writing per nursing staff. The instructions also include specific and strict return/GO TO THE ER as well as f/u information. All questions have been answered, and the patient deny any further questions with discharge and discharge plan. Some parts of this dictation were generated by voice recognition software and may contain typographical and/or grammatical inaccuracies. Differential Diagnosis Differential diagnosis: Likely laceration, abrasion and avulsion of skin Critical Care Time Critical Care Time Critical Care Time: No Discharge Plan Discharge Clinical Impression: Visit for wound check Patient Disposition: Home, Self-Care Condition: Stable Instructions: Antibiotic Form, Staple Care (ED) Additional Instructions: Keep area clean and dry. Wash with warm soapy water. Keep this cooper in for approximately 10-14 days total, Patient Language: Kyrgyz Prescriptions: No Action atorvastatin 40 mg Tablet 40 mg PO DAILY carvedilol 6.25 mg Tablet 6.25 mg PO DAILY clopidogrel 75 mg Tablet 75 mg PO DAILY allopurinol 100 mg Tablet 100 mg PO DAILY aspirin [Aspir-81] 81 mg Tablet,Delayed Release (Dr/Ec) 81 mg PO DAILY citalopram 20 mg Tablet 20 mg PO DAILY famotidine 20 mg Tablet 20 mg PO BID metformin 1,000 mg Tablet 1,000 mg PO BID lisinopril 10 mg Tablet 10 mg PO DAILY hydrochlorothiazide 12.5 mg Capsule 12.5 mg PO DAILY pantoprazole 20 mg tablet,delayed release (DR/EC) 20 mg PO DAILY cholecalciferol (vitamin D3) 125 mcg (5,000 unit) Tablet 125 mcg PO DAILY pioglitazone 15 mg tablet 15 mg PO DAILY dapagliflozin propanediol [Farxiga] 10 mg tablet 10 mg PO DAILY Follow-up/Referrals: Sirisha,MD Chyna [Primary Care Provider] - Time of Disposition: 10:23
[2025-01-29 09:40] VITALS: BP 156/69; PULSE 88; RESP 16; TEMP 36.6; O2SAT 98
== END 2025-01-29 10:25 | disposition home or self-care (01) ==
PROVIDERS: Emergency Provider Nurse Practitioner; PCP Internal Medicine
DX: Z48.02 Encounter for removal of sutures (principal); I10 Essential (primary) hypertension; E11.9 Type 2 diabetes mellitus without complications; Z79.84 Long term (current) use of oral hypoglycemic drugs; K21.9 Gastro-esophageal reflux disease without esophagitis; E78.5 Hyperlipidemia, unspecified; M10.9 Gout, unspecified; F32.A Depression, unspecified; Z79.82 Long term (current) use of aspirin
CPT/HCPCS: 99211; G0463

== ENCOUNTER 2025-02-03 10:20 | Emergency (ER) | payer MEDICARE, SELFPAY ==
--- NOTE | 2025-02-03 10:21 | ED_ITS ---
HPI - Wound/Laceration General Chief Complaint: Wound/Laceration Stated Complaint: staple removal Time Seen by Provider: 02/03/25 10:32 Source: patient, RN notes reviewed and old records reviewed Mode of arrival: ambulatory Limitations: no limitations History of Present Illness HPI narrative: 79-year-old male presents to the [facility] requesting to have sutures removed. Sutures were placed on the 24 of January. Area is clean dry approximated. No redness or swelling. Related Data Home Medications ?Medication ?Instructions ?Recorded ?Confirmed ?Last Taken ?Type allopurinol 100 mg tablet 100 mg PO DAILY 05/21/20 01/24/25 Unknown History aspirin 81 mg tablet,delayed 81 mg PO DAILY 05/21/20 01/24/25 Unknown History release (Aspir-) atorvastatin 40 mg tablet 40 mg PO DAILY 05/21/20 01/24/25 Unknown History carvedilol 6.25 mg tablet 6.25 mg PO DAILY 05/21/20 01/24/25 Unknown History citalopram 20 mg tablet 20 mg PO DAILY 05/21/20 01/24/25 Unknown History clopidogrel 75 mg tablet 75 mg PO DAILY 05/21/20 01/24/25 Unknown History famotidine 20 mg tablet 20 mg PO BID 05/21/20 01/24/25 Unknown History hydrochlorothiazide 12.5 mg capsule 12.5 mg PO DAILY 05/21/20 01/24/25 Unknown History lisinopril 10 mg tablet 10 mg PO DAILY 05/21/20 01/24/25 Unknown History metformin 1,000 mg tablet 1,000 mg PO BID 05/21/20 01/24/25 Unknown History cholecalciferol (vitamin D3) 125 125 mcg PO DAILY 12/09/21 01/24/25 Unknown History mcg (5,000 unit) tablet dapagliflozin propanediol 10 mg 10 mg PO DAILY 04/03/23 01/24/25 Unknown History tablet (Farxiga) pioglitazone 15 mg tablet 15 mg PO DAILY 04/03/23 01/24/25 Unknown History pantoprazole 20 mg tablet,delayed 20 mg PO DAILY 01/24/25 01/24/25 Unknown History release Allergies Allergy/AdvReac Type Severity Reaction Status Date / Time No Known Allergies Allergy Verified 02/03/25 10:26 Review of Systems Review of Systems: All systems reviewed & are unremarkable except as noted in HPI and below Constitutional: Constitutional: Reports no additional constitutional complaints ENT: Reports system reviewed and no additional complaints, except as documen tio Cardiovascular: Cardiovascular: Reports no additional cardiovascular complaints, Denies chest pain and Denies dyspnea Respiratory: Respiratory: Reports no additional respiratory complaints, Denies chest congestion, Denies cough and Denies dyspnea Musculoskeletal: Musculoskeletal: Reports no additional musculoskeletal complaints Integumentary/Breasts: Skin/Breast: Reports as per HPI [facility] Past Medical History Medical History Depression Hypertension GERD (gastroesophageal reflux disease) Diabetes Hyperlipidemia Gout Surgical History Surgical History No significant past surgical history Social History Social History Smoking status: Never smoker Alcohol intake: never Substance use: never Comments At the time of my signature, I reviewed and agree with the nursing past medical, surgical, social, and family history. There is no relevant family history pertinent to the patient complaint. Exam Const: General: cooperative, healthy appearing, comfortable, no acute distress, well developed, alert and well nourished Nutritional Appearance: well nourished Orientation/consciousness: patient oriented x3 Limitations: no limitations HENMT: Head: normal to inspection Eyes: General: appearance normal, both eyes and all related structures Alignment and Position: alignment normal Neck: Neck: normal visual inspection, full ROM, no lymphadenopathy and no meningeal signs Chest: Chest palpation & inspection: normal inspection of the chest Resp: Effort & Inspection: normal respiratory effort and able to speak in complete sentences Auscultation: clear to auscultation bilaterally, no crackles, no rales, no rhonchi and no wheezes Cardio: Rate: regular rate Skin: General skin exam: normal color and no rashes or lesions noted Other: Right lateral top of head incision with cooper in place. Well-approximated. No signs of infection Neuro: General: patient oriented x3, gait normal, moves all extremities and no meningeal signs Cognition (Neuro): normal cognition Speech: normal speech Gait exam (Neuro): Normal gait present Extrem: General: normal to inspection, full ROM, capillary refill normal and normal gait Psych: Appearance: grossly normal and well kempt Mental Status: mental status grossly normal Speech and movement: Normal speech and movement present and Clear speech present Affect: normal affect Attitude: cooperative Course Course Level of Care: Express Care Visit Vital Signs Vital signs: Vital Signs Temperature 98.2 F 02/03/25 10:33 Pulse Rate 90 02/03/25 10:33 Respiratory Rate 16 02/03/25 10:33 Blood Pressure 149/79 H 02/03/25 10:33 Pulse Oximetry 99 02/03/25 10:33 Oxygen Delivery Room Air 02/03/25 10:33 Temperature 98.2 F 02/03/25 10:33 Pulse Rate 90 02/03/25 10:33 Respiratory Rate 16 02/03/25 10:33 Blood Pressure 149/79 H 02/03/25 10:33 Pulse Oximetry 99 02/03/25 10:33 Oxygen Delivery Room Air 02/03/25 10:33 Reviewed MDM - Wound/Laceration MDM Narrative Medical decision making narrative: Patient sitting comfortably in exam room. Nontoxic, vitals stable. Patient in no acute distress. Wound is well healed. Seven sutures removed after cleaning with wound cleanser. Patient tolerated procedure well. Patient appropriate for outpatient treatment and follow-up Discharge instructions reviewed with patient, as well as provided in writing per nursing staff. The instructions also include specific and strict return/GO TO THE ER as well as f/u information. All questions have been answered, and the patient deny any further questions with discharge and discharge plan. Some parts of this dictation were generated by voice recognition software and may contain typographical and/or grammatical inaccuracies. Differential Diagnosis Differential diagnosis: Likely laceration, abscess, abrasion and avulsion of skin Critical Care Time Critical Care Time Critical Care Time: No Discharge Plan Discharge Clinical Impression: Encounter for removal of sutures Patient Disposition: Home, Self-Care Condition: Stable Instructions: Antibiotic Form, Acute Wounds (ED) Additional Instructions: Keep area clean and dry. Do not pick the area Follow-up with primary care provider Today your blood pressure was 149/79. Follow-up with primary care provider within 2 weeks have this rechecked Patient Language: Malay Prescriptions: No Action atorvastatin 40 mg Tablet 40 mg PO DAILY carvedilol 6.25 mg Tablet 6.25 mg PO DAILY clopidogrel 75 mg Tablet 75 mg PO DAILY allopurinol 100 mg Tablet 100 mg PO DAILY aspirin [Aspir-81] 81 mg Tablet,Delayed Release (/Ec) 81 mg PO DAILY citalopram 20 mg Tablet 20 mg PO DAILY famotidine 20 mg Tablet 20 mg PO BID metformin 1,000 mg Tablet 1,000 mg PO BID lisinopril 10 mg Tablet 10 mg PO DAILY hydrochlorothiazide 12.5 mg Capsule 12.5 mg PO DAILY pantoprazole 20 mg tablet,delayed release (DR/EC) 20 mg PO DAILY cholecalciferol (vitamin D3) 125 mcg (5,000 unit) Tablet 125 mcg PO DAILY pioglitazone 15 mg tablet 15 mg PO DAILY dapagliflozin propanediol [Farxiga] 10 mg tablet 10 mg PO DAILY Follow-up/Referrals: Sirisha,MD Chyna [Primary Care Provider] - 2 Weeks ([facility] care follow up ) Time of Disposition: 10:43
[2025-02-03 10:33] VITALS: BP 149/79; PULSE 90; RESP 16; TEMP 36.8; O2SAT 99
== END 2025-02-03 10:50 | disposition home or self-care (01) ==
PROVIDERS: Emergency Provider Nurse Practitioner; PCP Internal Medicine
DX: Z48.02 Encounter for removal of sutures (principal); I10 Essential (primary) hypertension; E11.9 Type 2 diabetes mellitus without complications
CPT/HCPCS: 99211; G0463